=== PATIENT | female | born 1960 | race Asian ===

== ENCOUNTER 2021-07-03 12:35 | Emergency (ER) | payer OTHER ==
[~2021-07-03] VITALS: Ht 152.4 cm; Wt 55.5 kg
[2021-07-03 12:36] VITALS: BP 156/104
[2021-07-03] MEDS ORDERED: CARBAMIDE PEROXIDE 6.5% 15 ML OTIC SOLUTION AS ONE (14:00)
[2021-07-03] MEDS ORDERED: CIPR7.5D AS (15:07)
== END 2021-07-03 15:31 | disposition home or self-care (01) ==
LOC: EMS 12:38
DX: T16.2XXA Foreign body in left ear, initial encounter (principal); E11.9 Type 2 diabetes mellitus without complications; E78.00 Pure hypercholesterolemia, unspecified; W45.8XXA Other foreign body or object entering through skin, initial encounter; Y93.89 Activity, other specified; Y92.89 Other specified places as the place of occurrence of the external cause; Y99.8 Other external cause status
CPT/HCPCS: 69200; 99284; Z7502; Z7610